=== PATIENT | male | born 1990 | race African-American/Black ===

== ENCOUNTER 2018-04-24 22:02 | Emergency (ER) | payer MEDICAID ==
--- NOTE | 2018-04-24 22:16 | ED Physician Chart ---
ED Chief Complaint/HPI - Patient Information Date Seen:: 04/24/18 Time Seen:: 22:11 Chief Complaint:: confusion Allergies:: tjust headachec ED Review of Systems - Review of Systems General/Constitutional: No fever Skin: No skin lesions Head: No headache Eyes: No loss of vision ENT: No earache Neck: No neck pain Cardio Vascular: No chest pain Pulmonary: No SOB GI: No vomiting G/U: No dysuria Musculoskeletal: Bone or joint pain (at the nde ) Psychiatric: No prior psych history Hematopoietic: Bruising Allergic/Immuno: No urticaria ED Physical Exam - Physical Examination General/Constitutional: Well-developed, well-nourished ENMT: External ears, nose nl (nasal bone) Neck: Nontender Respiratory: Clear to Auscultation Cardio Vascular: No murmur, gallop, rubs Extremities: No tenderness or effusion Neuro/Psych: Alert/oriented ED Septic Shock - . Is Septic Shock (SBP<90, OR Lactate>4 mmol\L) present?: No ED Reassessment (Disposition) - Diagnosis Diagnosis:: nasal contusion s/p nasal f/o
[2018-04-24] MEDS ORDERED: Morphine Sulfate 4 mg/mL 1mL Syr IM STA (22:38)
[2018-04-24] MEDS ORDERED: Morphine Sulfate 4 mg/mL 1mL Syr ONE (22:39)
--- NOTE | 2018-04-25 10:24 | Diagnostic Imaging Report ---
CT scan of the brain without contrast History: Headache, trauma Total DLP equals 624 CTDI equals 36.1 Axial sections were obtained from the base of the skull to the vertex. There is a normal ventricular system size. No focal parenchymal lesions are seen. No evidence of any mass effect or shift of midline structures. No extra-axial masses or abnormal fluid collections. Displaced fracture involves the left nasal bone. Intraluminal density or mucosal thickening seen within the ethmoid sinuses. Abnormal density noted to the nasopharynx presumably related to hematoma. Impression: 1. No acute intracerebral abnormalities 2. Left nasal bone fracture along with density in the ethmoid sinuses and nasopharynx probably related to posttraumatic hematoma.
--- NOTE | 2018-04-25 10:25 | Diagnostic Imaging Report ---
CT scan facial bones HISTORY: Pain, trauma Total DLP equals 494 CTDI equals 22.7 Axial sections were obtained through the facial bones. Additional coronal and sagittal reformatted images are provided. The exam demonstrates mildly displaced fracture involving the left nasal bone. Abnormal density noted throughout the nasopharynx and ethmoid sinuses consistent with posttraumatic hematoma. There is retention of normal bony margins about the orbits. No fractures. The zygomatic arches are intact. Pterygoid plates are intact. No focal abnormality within the mandible. IMPRESSION: 1. Mildly displaced left nasal bone fracture. Associated abnormal density throughout the nasopharynx and ethmoid sinuses consistent with posttraumatic hematoma.
== END 2018-04-24 23:25 | disposition home or self-care (01) ==
LOC: ER 22:02
DX: S02.2XXA Fracture of nasal bones, initial encounter for closed fracture (principal); W22.8XXA Striking against or struck by other objects, initial encounter; Y93.89 Activity, other specified; Y92.89 Other specified places as the place of occurrence of the external cause; Y99.8 Other external cause status
CPT/HCPCS: 70450-TC; 70486-TC; Z7502